=== PATIENT | male | born 1950 | race African-American/Black ===

== ENCOUNTER 2017-01-04 16:54 | Inpatient (IN) | payer BC ==
[~2017-01-04] VITALS: Ht 182.9 cm; Wt 99.8 kg
[~2017-01-04 16:54] MED LIST: FLOMAX0.4 MG PO; SYNTHROID25 MCG PO; TRAZODONE HCL100 MG PO
[2017-01-04 17:16] LABS: EOSINOPHIL (%) 1.8 % (0-5); EOSINOPHIL COUNT 0.1 K/uL (0-0.3); HEMATOCRIT 46.3 % (38.0-50.0); IMMATURE GRANULOCYTE (%) 0.4 % (0.0-0.7); INSTRUMENT ABS NEUTROPHIL CT 1.9 K/uL; LYMPHOCYTE COUNT 2.8 K/uL (1.0-2.8); MCH 29.3 PG (29.0-34.0); MCHC 33.7 G/DL (30.0-36.0); MEAN PLAT.VOLUME 9.9 uM^3 (9.0-12.4); MONOCYTE (%) 12.7 % (3-12); MONOCYTE COUNT 0.7 K/uL (0-0.8); NEUTROPHIL (%) 34.1 % (45-76); NEUTROPHIL COUNT 1.9 K/uL (1.8-6.4); PLATELET COUNT 217 K/uL (156-360); RBC DIS.WIDTH-CV 13.8 % (11.8-14.6); RBC DIS.WIDTH-SD 44.1 % (39-53); RED BLOOD COUNT 5.32 M/uL (4.00-5.50); WHITE BLOOD COUNT 5.6 K/uL (4.1-10.2)
[2017-01-04 17:17] LABS: CREATININE 0.9 mg/dL (0.6-1.3); POTASSIUM 3.7 mEq/L (3.7-5.4)
[2017-01-04 17:26] LABS: INTER. NORMALIZED RATIO 1.2; PROTHROMBIN TIME 12.2 (9.2-11.2); PTT 25.1 (25-32)
[2017-01-04 17:29] LABS: AMYLASE 151 IU/L (1-118); CHLORIDE 107 mEq/L (99-109); POTASSIUM 3.8 mEq/L (3.7-5.4); SODIUM 139 mEq/L (136-147)
[2017-01-04 17:30] LABS: GLUCOSE 100 mg/dL (70-99)
[2017-01-04 17:32] LABS: ANION GAP 13 MEQ/L (2-14)
[2017-01-04 17:34] LABS: GFR ESTIMATE (CALCULATED) > 59 mL/min/; SERUM ETHYL ALCOHOL < 10 mg/dL
[2017-01-04 17:35] LABS: UREA NITROGEN (BUN) 12 mg/dL (9-23)
[2017-01-04 17:37] LABS: LIPASE 114 U/L (1.0-51.0)
[2017-01-04 17:38] LABS: TROP-I INTERPRETATION NEGATIVE; TROPONIN-I < 0.01 ng/mL (0.0-0.30)
[2017-01-04 19:59] LABS: ALKALINE PHOSPHATASE 95 IU/L (3-129)
[2017-01-04 20:02] LABS: DIRECT BILIRUBIN 0.3 mg/dL (0.0-0.3)
[2017-01-04 20:09] LABS: ADD MIUA? NO; BILIRUBIN NEGATIVE; BLOOD NEGATIVE; COLOR STRAW ((YELLOW)); GLUCOSE (STRIP) NEGATIVE; KETONES NEGATIVE; LEUKOCYTES NEGATIVE; NITRITE NEGATIVE; PROTEIN (STRIP) 30; SPECIFIC GRAVITY 1.024 (1.000-1.030); UCUL ADDED? NO
[2017-01-04 20:11] LABS: SALICYLATE < 5.0 MG/DL (15-30)
[2017-01-04 20:17] LABS: AMPHETAMINE NEGATIVE (500 ng/mL); BARBITURATES NEGATIVE (200 ng/mL); BENZODIAZEPINES NEGATIVE (150 ng/mL); COCAINE NEGATIVE (150 ng/mL); INTERNAL CONTROLS VALID? YES; METHADONE NEGATIVE (200 ng/mL); METHAMPHETAMINE NEGATIVE (500 ng/mL); OPIATES (MORPHINE) NEGATIVE (100 ng/mL); OXYCODONE NEGATIVE (100 ng/mL); PHENCYCLIDINE NEGATIVE (25 ng/mL); PROPOXYPHENE NEGATIVE (300 ng/mL); THC CANNABINOIDS PRESUMPTIVE POSITIVE (50 ng/mL); TRICYCLIC ANTIDEPRESSANTS NEGATIVE (300 ng/mL)
[2017-01-04 20:18] LABS: ADD MEDTOX COMMENT Y
[2017-01-04 22:49] VITALS: BP 132/85
[2017-01-05 01:01] LABS: TROP-I INTERPRETATION NEGATIVE; TROPONIN-I < 0.01 ng/mL (0.0-0.30)
[2017-01-05 01:55] LABS: HDL CHOLESTEROL 45 MG/DL (Desirable>=40); LDL CHOLESTEROL 128 mg/dL (Desirable<100); NON-HDL CHOLESTEROL 151 mg/dL (Desirable<160); TOTAL CHOLESTEROL 196 mg/dL (Desirable<200); TRIGLYCERIDES 116 MG/DL (Normal: <150)
[2017-01-05 04:09] VITALS: BP 140/68
[2017-01-05 07:02] LABS: ALKALINE PHOSPHATASE 79 IU/L (3-129); AMYLASE 117 IU/L (1-118); ANION GAP 8 MEQ/L (2-14); CHLORIDE 109 MEQ/L (99-109); GFR ESTIMATE (CALCULATED) > 59 mL/min/; GLUCOSE 94 mg/dL (70-99); LIPASE 174 U/L (1.0-51.0); POTASSIUM 4.1 MEQ/L (3.7-5.4); SAMPLE HEMOLYSIS CHECK 0; SAMPLE ICTERIC CHECK 0; SAMPLE LIPEMIA CHECK 0; SODIUM 138 MEQ/L (136-147); UREA NITROGEN (BUN) 10 mg/dL (9-23)
[2017-01-05 07:28] VITALS: BP 132/71
[2017-01-05 07:29] LABS: TROP-I INTERPRETATION NEGATIVE; TROPONIN-I 0.01 ng/mL (0.0-0.30)
[2017-01-05 11:27] VITALS: BP 130/68
[2017-01-05 12:09] LABS: POINT-OF-CARE METER ID UU13113717
[2017-01-05 15:11] VITALS: BP 134/76
[2017-01-05 17:07] LABS: POINT-OF-CARE METER ID UU14174225
[2017-01-05 19:45] VITALS: BP 143/79
[2017-01-05 21:20] LABS: POINT-OF-CARE METER ID UU14174225
[2017-01-06 00:11] VITALS: BP 152/88
[2017-01-06 06:02] LABS: EOSINOPHIL (%) 2.6 % (0-5); EOSINOPHIL COUNT 0.2 K/uL (0-0.3); IMMATURE GRANULOCYTE (%) 0.3 % (0.0-0.7); INSTRUMENT ABS NEUTROPHIL CT 2.3 K/uL; LYMPHOCYTE COUNT 2.9 K/uL (1.0-2.8); MCH 28.8 PG (29.0-34.0); MCHC 33.3 G/DL (30.0-36.0); MCV 86.5 FL (86-99); MEAN PLAT.VOLUME 10.4 uM^3 (9.0-12.4); MONOCYTE COUNT 0.7 K/uL (0-0.8); NEUTROPHIL COUNT 2.3 K/uL (1.8-6.4); PLATELET COUNT 212 K/uL (156-360); RBC DIS.WIDTH-CV 13.4 % (11.8-14.6); RBC DIS.WIDTH-SD 42.2 % (39-53); WHITE BLOOD COUNT 6.1 K/uL (4.1-10.2)
[2017-01-06 06:31] LABS: ALKALINE PHOSPHATASE 82 IU/L (3-129); ANION GAP 7 MEQ/L (2-14); CHLORIDE 107 MEQ/L (99-109); GFR ESTIMATE (CALCULATED) > 59 mL/min/; GLUCOSE 104 mg/dL (70-99); LIPASE 55 U/L (1.0-51.0); POTASSIUM 4.3 MEQ/L (3.7-5.4); SAMPLE HEMOLYSIS CHECK 0; SAMPLE ICTERIC CHECK 0; SAMPLE LIPEMIA CHECK 0; SODIUM 137 MEQ/L (136-147); TOTAL BILIRUBIN 0.9 MG/DL (0.0-1.0); UREA NITROGEN (BUN) 11 mg/dL (9-23)
[2017-01-06 07:23] VITALS: BP 138/79
[2017-01-06 07:25] LABS: Estimated Average Glucose 123 mg/dL (70-123); HEMOGLOBIN A1c (GLYCOHEMOGLOB) 5.9 % HGB (Below 5.7)
[2017-01-06] MEDS ORDERED: NICOTINE PATCH1 EAC2 TD (08:43)
[2017-01-06] MEDS ORDERED: ATORVASTATIN CA80 MG PO (08:43)
[2017-01-06] MEDS ORDERED: ASPIR-LOW81 MG PO (08:43)
[2017-01-06] MEDS ORDERED: LISINOPRIL5 MG PO (08:44)
== END 2017-01-06 09:20 | disposition home or self-care (01) | DRG 69 ==
LOC: EME → EDBD 16:54 → EME 16:54 → EDOF 19:42 → 5SOUTH 22:28
PROVIDERS: Emergency Medicine; Hospitalist; Physician Assistant Medical
DX: G45.9 Transient cerebral ischemic attack, unspecified (principal); E78.5 Hyperlipidemia, unspecified; F17.210 Nicotine dependence, cigarettes, uncomplicated; F31.9 Bipolar disorder, unspecified; Z91.19 Patient's noncompliance with other medical treatment and regimen; E03.9 Hypothyroidism, unspecified; N40.0 Benign prostatic hyperplasia without lower urinary tract symptoms; I25.2 Old myocardial infarction; I10 Essential (primary) hypertension; R47.01 Aphasia; D17.9 Benign lipomatous neoplasm, unspecified; E66.9 Obesity, unspecified; Z68.29 Body mass index [BMI] 29.0-29.9, adult
CPT/HCPCS: 70450; 70496; 70498; 70551; 74177; 80047; 80048; 80053; 80061; 80076; 81003; 82150; 82948; 83036; 83690; 84443; 84484; 84999; 85025; 85610; 85730; 86900; 86901; 93005; 99281; 99285; G0480; J1650; J1815; J2997; J7030

== ENCOUNTER 2017-01-09 10:32 | Observation (INO) | payer BC ==
[~2017-01-09] VITALS: Ht 182.9 cm; Wt 97.3 kg
[~2017-01-09 10:32] MED LIST changes: +ASPIR-LOW81 MG PO; +ATORVASTATIN CA80 MG PO; +LISINOPRIL5 MG PO; +NICOTINE PATCH1 EAC2 TD
[2017-01-09 11:06] LABS: POINT-OF-CARE METER ID UU13113702
[2017-01-09 11:19] LABS: HEMATOCRIT 47.9 % (38.0-50.0); MCH 29.1 PG (29.0-34.0); MCHC 33.4 G/DL (30.0-36.0); MCV 87.1 FL (86-99); RBC DIS.WIDTH-SD 46.6 % (39-53); WHITE BLOOD COUNT 6.5 K/uL (4.1-10.2)
[2017-01-09 12:01] LABS: INTER. NORMALIZED RATIO 1.3
[2017-01-09 12:04] LABS: PTT 27.8 SEC (25-37)
[2017-01-09 12:11] LABS: CHLORIDE 107 mEq/L (99-109); SODIUM 140 mEq/L (136-147)
[2017-01-09 12:13] LABS: GLUCOSE 92 mg/dL (70-99)
[2017-01-09 12:14] LABS: ANION GAP 10 MEQ/L (2-14)
[2017-01-09 12:16] LABS: TROP-I INTERPRETATION NEGATIVE; TROPONIN-I < 0.01 ng/mL (0.0-0.30)
[2017-01-09 12:17] LABS: ANISOCYTOSIS 1+; EOSINOPHIL (%) 1.4 % (0-5); EOSINOPHIL COUNT 0.1 K/uL (0-0.3); IMMATURE GRANULOCYTE (%) 0.3 % (0.0-0.7); INSTRUMENT ABS NEUTROPHIL CT 2.5 K/uL; MACROCYTES 1+; MONOCYTE (%) 12.8 % (3-12); MONOCYTE COUNT 0.8 K/uL (0-0.8); NEUTROPHIL (%) 38.7 % (45-76); NEUTROPHIL COUNT 2.5 K/uL (1.8-6.4); PLAT.SUFFICIENCY ADEQUATE; PLATELET CLUMPS PRESENT - PLATELET COUNT APPEARS ADQ.; POIKILOCYTOSIS 1+
[2017-01-09 12:17] LABS: ALKALINE PHOSPHATASE 104 IU/L (3-129); GFR ESTIMATE (CALCULATED) > 59 mL/min/
[2017-01-09 12:18] LABS: PLATELET COUNT UNABLE TO REPORT K/uL (156-360)
[2017-01-09 12:18] LABS: UREA NITROGEN (BUN) 13 mg/dL (9-23)
[2017-01-09 12:21] LABS: TOTAL BILIRUBIN 1.3 mg/dL (0.0-1.0)
[2017-01-09 17:45] VITALS: BP 171/84
[2017-01-09 18:49] LABS: TROP-I INTERPRETATION NEGATIVE; TROPONIN-I 0.01 ng/mL (0.0-0.30)
[2017-01-10 00:30] VITALS: BP 159/82
[2017-01-10 01:14] LABS: TROP-I INTERPRETATION NEGATIVE; TROPONIN-I < 0.01 ng/mL (0.0-0.30)
[2017-01-10 08:00] VITALS: BP 142/83
[2017-01-10] MEDS ORDERED: NICOTINE PATCH1 EAC2 TD (11:20)
== END 2017-01-10 11:39 | disposition home or self-care (01) ==
LOC: EME 10:32 → EDOF 12:46 → 5WEST 12:46 → EDOF 12:46 → 5WEST 17:03
PROVIDERS: Emergency Medicine; Internal Medicine
DX: G45.9 Transient cerebral ischemic attack, unspecified (principal); R53.1 Weakness; R47.81 Slurred speech; F31.9 Bipolar disorder, unspecified; E78.5 Hyperlipidemia, unspecified; F17.200 Nicotine dependence, unspecified, uncomplicated; E03.9 Hypothyroidism, unspecified; J44.9 Chronic obstructive pulmonary disease, unspecified; Z79.82 Long term (current) use of aspirin; I10 Essential (primary) hypertension
CPT/HCPCS: 70450; 70551; 71010; 80048; 80053; 82948; 84484; 85025; 85027; 85610; 85730; 93005; 93306; 99281; 99284; G0378; J1650

== ENCOUNTER 2017-11-05 22:29 | Emergency (ER) | payer OTHER, BC ==
[~2017-11-05] VITALS: Ht 182.9 cm; Wt 99.0 kg
[2017-11-05 23:06] LABS: MCH 29.6 PG (29.0-34.0); MCHC 34.1 G/DL (30.0-36.0); MCV 86.8 FL (86-99); RBC DIS.WIDTH-CV 13.3 % (11.8-14.6); RBC DIS.WIDTH-SD 41.8 % (39-53); RED BLOOD COUNT 5.07 M/uL (4.00-5.50); WHITE BLOOD COUNT 6.5 K/uL (4.1-10.2)
[2017-11-05 23:15] LABS: ALBUMIN 4.1 g/dL (3.2-4.8); CHLORIDE 109 mEq/L (99-109); POTASSIUM 3.8 mEq/L (3.7-5.4); SODIUM 137 mEq/L (136-147)
[2017-11-05 23:17] LABS: GLUCOSE 110 mg/dL (70-99); TOTAL PROTEIN 7.5 g/dL (6.4-8.3)
[2017-11-05 23:19] LABS: TOTAL BILIRUBIN 0.8 mg/dL (0.0-1.0)
[2017-11-05 23:21] LABS: ALKALINE PHOSPHATASE 99 IU/L (3-129); CREATININE 0.9 mg/dL (0.6-1.3); GFR ESTIMATE (CALCULATED) > 59 mL/min/ (58.99-99999)
[2017-11-05 23:22] LABS: UREA NITROGEN (BUN) 15 mg/dL (9-23)
[2017-11-05 23:23] LABS: AST (GOT) 21 IU/L (2-34)
[2017-11-05 23:24] LABS: ALT (GPT) 42 IU/L (3-49); LIPASE 27 U/L (1.0-51.0)
[2017-11-05 23:30] LABS: TROP-I INTERPRETATION NEGATIVE; TROPONIN-I < 0.01 ng/mL (0.0-0.30)
[2017-11-06 00:10] LABS: PLAT.SUFFICIENCY ADEQUATE; PLATELET COUNT 200 K/uL (156-360)
[2017-11-06 00:52] VITALS: BP 165/97
== END 2017-11-06 00:55 | disposition home or self-care (01) ==
LOC: EME 22:29
PROVIDERS: Emergency Medicine
DX: H53.8 Other visual disturbances (principal); Z86.69 Personal history of other diseases of the nervous system and sense organs; Z98.890 Other specified postprocedural states; I10 Essential (primary) hypertension; I51.7 Cardiomegaly; R94.31 Abnormal electrocardiogram [ECG] [EKG]; I67.89 Other cerebrovascular disease; E78.5 Hyperlipidemia, unspecified; F31.9 Bipolar disorder, unspecified; Z87.891 Personal history of nicotine dependence; Z86.73 Personal history of transient ischemic attack (TIA), and cerebral infarction without residual deficits
CPT/HCPCS: 70450; 80053; 83690; 84484; 85027; 93005; 99281; 99284

== ENCOUNTER 2017-12-08 07:07 | Day surgery (SDC) | payer OTHER ==
[~2017-12-08] VITALS: Ht 182.9 cm; Wt 97.9 kg
[2017-12-08 07:56] VITALS: BP 143/77
[2017-12-08 10:50] VITALS: BP 176/88
[2017-12-08 11:28] VITALS: BP 181/91
== END 2017-12-08 11:43 | disposition home or self-care (01) ==
LOC: SDC 07:07
DX: H43.02 Vitreous prolapse, left eye (principal); T85.22XA Displacement of intraocular lens, initial encounter; Z87.891 Personal history of nicotine dependence; Z79.82 Long term (current) use of aspirin; Z86.73 Personal history of transient ischemic attack (TIA), and cerebral infarction without residual deficits
CPT/HCPCS: J0690; J2250; J3010; V2632